=== PATIENT | female | born 1980 | race Caucasian/White ===

== ENCOUNTER 2016-08-31 20:00 | Emergency (ER) | payer OTHER ==
[~2016-08-31] VITALS: Ht 167.6 cm; Wt 99.8 kg
[~2016-08-31 20:00] MED LIST: DIVA250E1 PO; RESPERIDONE PO
[2016-08-31 20:17] VITALS: BP 129/74
--- NOTE | 2016-08-31 20:22 | NUR ---
PT TAKEN TO OF[facility]
--- NOTE | 2016-08-31 20:39 | NUR ---
Dr. Patton evaluating patient
[2016-08-31 21:15] VITALS: BP 123/67
--- NOTE | 2016-08-31 21:15 | NUR ---
Patient discharged with v/s stable. Written and verbal after care instructions given and explained. Patient alert, oriented and verbalized understanding of instructions. Ambulatory with steady gait. All questions addressed prior to discharge. ID band removed. Patient advised to follow up with PMD. Rx of Amoxicillin and Motrin given. Patient educated on indication of medication including possible reaction and side effects. Opportunity to ask questions provided and answered.
== END 2016-08-31 21:15 | disposition home or self-care (01) ==
LOC: MED 20:00
DX: H66.91 Otitis media, unspecified, right ear (principal); J02.9 Acute pharyngitis, unspecified
CPT/HCPCS: 99283

== ENCOUNTER 2017-12-11 17:04 | Emergency (ER) | payer OTHER ==
[~2017-12-11] VITALS: Ht 167.6 cm; Wt 106.6 kg
[2017-12-11 17:19] VITALS: BP 107/77
--- NOTE | 2017-12-11 17:26 | NUR ---
PT AMBULATED TO ER BED 3.
--- NOTE | 2017-12-11 17:27 | NUR ---
37/F BIB SELF C/O NAUSEA & EPIGASTRIC PAIN x TODAY @ 0600. DENIES V/D;SKIN IS PINK/WARM/DRY; AAOX4 WITH EVEN AND STEADY GAIT; LUNGS CLEAR BL; PATIENT STATES PAIN OF 9/10 AT THIS TIME. PATIENT POSITIONED FOR COMFORT; HOB ELEVATED; BEDRAILS UP X2; BED DOWN. ER MD MADE AWARE OF PT STATUS.
[2017-12-11 18:17] LABS: BASOPHILS # (AUTO) 0.1 K/uL (0.00-0.22); BASOPHILS % (AUTO) 0.7 % (0.0-2.0); EOSINOPHILS # (AUTO) 0.2 K/uL (0-0.4); EOSINOPHILS % (AUTO) 1.5 % (0.0-4.0); HEMOGLOBIN 13.6 g/dL (12.0-16.0); LYMPHOCYTES # (AUTO) 4.2 K/uL (2.5-16.5); LYMPHOCYTES % (AUTO) 26.7 % (20.5-51.1); MEAN CORPUSCULAR HEMOGLOBIN 31 pg (27-31); MEAN CORPUSCULAR HGB CONC 33 g/dL (33-37); MEAN CORPUSCULAR VOLUME 93.8 fL (80-94); MONOCYTES % (AUTO) 6.2 % (1.7-9.3); NEUTROPHILS # (AUTO) 10.3 K/uL (1.8-7.7); NEUTROPHILS % (AUTO) 64.9 % (42.2-75.2); PLATELET COUNT (AUTO) 351 K/uL (140-450); RED BLOOD CELL COUNT(AUTO) 4.37 MIL/uL (4.20-5.40); RED CELL DISTRIBUTION WIDTH 13.3 % (11.6-13.7); WHITE BLOOD COUNT (AUTO) 15.8 K/uL (4.8-10.8)
[2017-12-11 18:34] LABS: ANION GAP 9.8 (8-16); CARBON DIOXIDE 25.1 mmol/L (21-32); CREATININE 0.8 mg/dL (0.6-1.3); POTASSIUM 3.9 mmol/L (3.5-5.1)
[2017-12-11 18:40] LABS: ALBUMIN 3.3 g/dL (3.4-5.0); TOTAL BILIRUBIN 0.2 mg/dL (0.0-1.0)
--- NOTE | 2017-12-11 19:13 | NUR ---
Pt report given to [facility]. Transfer of care at this time.
--- NOTE | 2017-12-11 19:26 | NUR ---
PT LAYING IN BED, AWAKE, WILL CONTINUE TO MONITOR.
--- NOTE | 2017-12-11 19:50 | NUR ---
Dr. Rogel evaluating patient at bedside.
--- NOTE | 2017-12-11 20:26 | NUR ---
Patient discharged with v/s stable. Written and verbal after care instructions given and explained. Patient alert, oriented and verbalized understanding of instructions. Ambulatory with steady gait. All questions addressed prior to discharge. ID band removed. Patient advised to follow up with PMD. Rx of PRILOSEC given. Patient educated on indication of medication including possible reaction and side effects. Opportunity to ask questions provided and answered.
[2017-12-11 20:50] VITALS: BP 126/88
== END 2017-12-11 20:26 | disposition home or self-care (01) ==
LOC: MED 17:04
DX: R10.9 Unspecified abdominal pain (principal); Z79.899 Other long term (current) drug therapy
CPT/HCPCS: 36415; 80053; 81002; 81025; 83690; 85025; 99284

== ENCOUNTER 2018-05-31 13:46 | Emergency (ER) | payer OTHER ==
[~2018-05-31] VITALS: Ht 167.6 cm; Wt 110.7 kg
[2018-05-31 13:52] VITALS: BP 118/78
[2018-05-31] MEDS ORDERED: MECLIZINE 25 MG TAB PO ONE (14:15)
[2018-05-31] MEDS ORDERED: PROMETHAZINE 25 MG/ML VIAL IM ONE (14:15)
--- NOTE | 2018-05-31 14:30 | NUR ---
C/O DIZZINESS WITH MILD NAUSEA X YESTERDAY DENIES INJURY, NO EMESIS OR DIARRHEA, DENIES COLD SYMPTOMS AT THIS TIME. AMBULATORY WITH STEADY GAIT, FULL CLEAR SPEECH,
--- NOTE | 2018-05-31 15:38 | NUR ---
Patient discharged with v/s stable. Written and verbal after care instructions given and explained. Patient alert, oriented and verbalized understanding of instructions. Ambulatory with steady gait. All questions addressed prior to discharge. ID band removed. Patient advised to follow up with PMD. Rx of FIORICET, AZITHROMYCIN, AND ANTIVERT given. Patient educated on indication of medication including possible reaction and side effects. Opportunity to ask questions provided and answered.
[2018-05-31 15:45] VITALS: BP 118/78
== END 2018-05-31 15:38 | disposition home or self-care (01) ==
LOC: MED 13:46
DX: R42 Dizziness and giddiness (principal); R11.0 Nausea; F20.9 Schizophrenia, unspecified; Z79.899 Other long term (current) drug therapy
CPT/HCPCS: 81002; 81025; 96372; 99283; J2550; J8597

== ENCOUNTER 2018-07-04 22:52 | Emergency (ER) | payer OTHER ==
[~2018-07-04] VITALS: Ht 167.6 cm; Wt 108.9 kg
[2018-07-04 22:55] VITALS: BP 116/71
--- NOTE | 2018-07-04 22:57 | NUR ---
Jerson abernathy in [facility] - 07/04/18 at 2301 by AMANDEEP PT TAKEN TO BED 9
--- NOTE | 2018-07-04 23:02 | NUR ---
EMT IN TRIAGE FOR EKG.
--- NOTE | 2018-07-04 23:06 | NUR ---
EKG PERFORMED NSR, PT SENT TO [facility].
[2018-07-04 23:36] LABS: BASOPHILS # (AUTO) 0.1 K/uL (0.00-0.22); BASOPHILS % (AUTO) 0.5 % (0.0-2.0); EOSINOPHILS # (AUTO) 0.3 K/uL (0-0.4); EOSINOPHILS % (AUTO) 1.7 % (0.0-4.0); HEMATOCRIT 43.9 % (36-48); HEMOGLOBIN 14.6 g/dL (12.0-16.0); LYMPHOCYTES # (AUTO) 5.2 K/uL (2.5-16.5); LYMPHOCYTES % (AUTO) 30.5 % (20.5-51.1); MEAN CORPUSCULAR HEMOGLOBIN 31 pg (27-31); MEAN CORPUSCULAR HGB CONC 33 g/dL (33-37); MEAN CORPUSCULAR VOLUME 92.8 fL (80-94); MONOCYTES # (AUTO) 1.2 K/uL (0.8-1.0); MONOCYTES % (AUTO) 6.9 % (1.7-9.3); NEUTROPHILS # (AUTO) 10.2 K/uL (1.8-7.7); PLATELET COUNT (AUTO) 357 K/uL (140-450); RED BLOOD CELL COUNT(AUTO) 4.74 MIL/uL (4.20-5.40); RED CELL DISTRIBUTION WIDTH 13.6 % (11.6-13.7); WHITE BLOOD COUNT (AUTO) 16.9 K/uL (4.8-10.8)
[2018-07-04 23:45] LABS: ANION GAP 9.2 (8-16); CARBON DIOXIDE 29.6 mmol/L (21-32); CREATININE 0.9 mg/dL (0.6-1.3); POTASSIUM 3.8 mmol/L (3.5-5.1)
[2018-07-04 23:50] LABS: ALBUMIN 3.4 g/dL (3.4-5.0); TOTAL BILIRUBIN 0.2 mg/dL (0.0-1.0)
[2018-07-04 23:51] LABS: NEUTROPHILS % (AUTO) 60.4 % (42.2-75.2)
--- NOTE | 2018-07-05 00:20 | NUR ---
PER ADMIT FOOT DOCTOR, PATIENT LEFT WITHOUT BEING SEEN BY DR. FERNANDES. NO FURTHER CARE PROVIDED FOR PATIENT.
== END 2018-07-05 00:20 | disposition left against medical advice (07) ==
LOC: MED 22:52
DX: R10.13 Epigastric pain (principal); Z53.21 Procedure and treatment not carried out due to patient leaving prior to being seen by health care provider
CPT/HCPCS: 36415; 80053; 83690; 84484; 85025; 93005; 99281

== ENCOUNTER 2019-01-06 03:08 | Emergency (ER) | payer OTHER ==
[~2019-01-06] VITALS: Ht 170.2 cm; Wt 108.9 kg
[2019-01-06 03:10] VITALS: BP 105/76
--- NOTE | 2019-01-06 03:10 | NUR ---
TO BED #08 AMBULATORY
--- NOTE | 2019-01-06 03:15 | NUR ---
PT CAME TO ER C/O OF RIGHT ELBOW PAIN SINCE 01/05/19 IN MORNING. PT DENIES INJURY / TRAUMA. PAIN LEVEL 02/04, THROBBING. PT ELBOW SLIGHTLY SWOLLEN. PT IS UNABLE TO MOVE ARM. NKA. NO MED HX. SAFETY MEASURES IN PLACE. ERMD MADE AWARE OF STATUS.
--- NOTE | 2019-01-06 03:50 | NUR ---
PT AMBULATED TO RESTROOM
--- NOTE | 2019-01-06 03:57 | NUR ---
Dr. Welsh examining patient.
[2019-01-06] MEDS ORDERED: KETOROLAC 60 MG/2 ML VIAL IM ONE (04:05)
[2019-01-06] MEDS ORDERED: MORPHINE SULFATE 4 MG/ML SYR IM ONE (04:25)
--- NOTE | 2019-01-06 04:45 | NUR ---
X-Ray at bedside.
--- NOTE | 2019-01-06 04:52 | NUR ---
ERMD AT BEDSIDE
[2019-01-06 04:55] VITALS: BP 105/76
--- NOTE | 2019-01-06 04:55 | NUR ---
Patient discharged with v/s stable. Written and verbal after care instructions given and explained. Pt encourage to rest, ice and elevate right arm. Patient alert, oriented and verbalized understanding of instructions. Ambulatory with steady gait. All questions addressed prior to discharge. ID band removed. Patient advised to follow up with PMD. Rx of MOTRIN AND NORCO was given. Patient educated on indication of medication including possible reaction and side effects. Opportunity to ask questions provided and answered.
== END 2019-01-06 04:55 | disposition home or self-care (01) ==
LOC: MED 03:08
DX: M25.521 Pain in right elbow (principal); F17.210 Nicotine dependence, cigarettes, uncomplicated; Z79.899 Other long term (current) drug therapy
CPT/HCPCS: 73080; 81002; 81025; 96372; 99283; J1885; J2270; Q0092

== ENCOUNTER 2020-03-21 19:19 | Emergency (ER) | payer OTHER ==
[~2020-03-21] VITALS: Ht 167.6 cm; Wt 113.4 kg
[2020-03-21 19:30] VITALS: BP 140/90
--- NOTE | 2020-03-21 19:57 | NUR ---
SEEN AND EXAMINED BY BERNY WITH ORDER AND CARRIED OUT.
--- NOTE | 2020-03-21 20:04 | NUR ---
SWAB DONE AND SENT TO LAB
[2020-03-21 20:52] VITALS: BP 140/90
--- NOTE | 2020-03-21 20:52 | NUR ---
Patient discharged with v/s stable. Written and verbal after care instructions given and explained. Patient alert, oriented and verbalized understanding of instructions. Ambulatory with steady gait. All questions addressed prior to discharge. ID band removed. Patient advised to follow up with PMD. Rx of NAPROSYN 500MG given. Patient educated on indication of medication including possible reaction and side effects. Opportunity to ask questions provided and answered.
--- NOTE | 2020-03-23 11:22 | NUR ---
+ covid result received from lab. Copy of result will be given to Lily at [facility]
== END 2020-03-21 20:52 | disposition home or self-care (01) ==
LOC: MED 19:19
DX: B34.9 Viral infection, unspecified (principal); Z20.828 Contact with and (suspected) exposure to other viral communicable diseases; M79.10 Myalgia, unspecified site; F17.210 Nicotine dependence, cigarettes, uncomplicated; Z79.899 Other long term (current) drug therapy
CPT/HCPCS: 99283; U0003